=== PATIENT | female | born 2000 | race Caucasian/White ===

== ENCOUNTER → 2020-12-08 13:27 | Outpatient (CLI) | payer SELFPAY ==
[2020-12-08 14:03] LABS: Urine Pregnancy, HCG Qual. Negative (Negative)
== END ==
PROVIDERS: Visit Provider Internal Medicine Gastroenterology
DX: Z01.812 Encounter for preprocedural laboratory examination (principal); Z11.52 Encounter for screening for COVID-19; Z13.810 Encounter for screening for upper gastrointestinal disorder
CPT/HCPCS: 81025; U0003

== ENCOUNTER 2020-12-10 11:07 | Day surgery (SDC) | payer SELFPAY ==
[2020-12-10 11:31] VITALS: BP 124/83; PULSE 90; RESP 18; TEMP 36.6; O2SAT 100
--- NOTE | 2020-12-10 12:24 | P.PN_ITS ---
[facility] Anesthesia Checklist - Structural Data Admitted From: Home Planned Operative Procedure/s: egd Consent for Planned Operative Procedure(s) Verified: Yes - Airway Assessment C-Spine Mobility Assessed: Yes TMJ Mobility Assessed: Yes Dentition: Good Dentition - Neurological Assessment Level of Consciousness: Awake, Alert, Appropriate - Anesthesia Plan Anesthesia Risk discussed: Yes Anesthesia Plan: Verified ASA Class: II Anesthesia Type: MAC [facility] History I have reviewed the patient's past medical history: Yes Medical History: Denies:: Cancer, Diabetes Mellitus Type 1, Diabetes Mellitus Type 2, Internal Pacemaker, MRSA, Seizures *Have you ever received a pneumonia vaccine?: No *Have you received a flu vaccine this season?: No Anesthesia experience/problems:: none Laterality Cases: Bilateral: Tonsillectomy Other Surgeries: No: Pacemaker Amputation: No Fractures: No - *Social History Last grade of school completed: Some college Smoking Status: Never smoker Alcohol Intake: current Alcohol Intake Frequency:: a few times a month Substance Use Type: denies use *Occupational Status:: student Housing: house Household Members: family *Travel in the last 8 weeks: None Family Hx:: No significant family history
--- NOTE | 2020-12-10 12:35 | HMH.PROC ---
[facility] Procedure Note Procedure Note:: Upper Endoscopy Procedure Report: Esophagogastroduodenoscopy with cold biopsies Endoscopost: Lino Black II, MD Referring Physician: Vanessa Rivera MD ([id number] [place] [place] [phone] Date of Procedure: 12/10/2020 Equipment: Olympus GIF 190 standard upper endoscope Sedation: MAC sedation Indications: Ms. Yates is a 20-year-old female who states that in June 2020 she developed more significant nausea with rare vomiting. This started after beginning spironolactone. When she stopped this she did not improved. She has had some reduced appetite. She also reports some belching, bloating, indigestion and heartburn. She has occasional chest pain. She reports no dysphagia or weight loss. She did have a CAT scan of the abdomen and pelvis that was essentially normal except for some small nonobstructing bilateral kidney stones. She reports no melena. She does feel that omeprazole may have helped with her symptoms. She does report some loose bowel movements and postprandial bloating and early satiety. Procedure: Prior to the procedure, a history and physical exam was performed, and patient's medications and allergies were reviewed. The risks, benefits and alternatives of the sedation and procedure were discussed with the patient. All questions were answered and informed consent was obtained. The patient was brought to the procedure room. Patient identification and proposed procedure were verified by the physician and the nurse. The patient was placed in a left lateral decubitus position and the scope was passed under direct vision. Throughout the procedure, the patient's blood pressure, pulse, and oxygen saturations were monitored continuously. The upper GI endoscopy was accomplished without difficulty. The patient tolerated the procedure well. Findings: The scope was passed directly into the upper esophagus and advanced to the third portion of the duodenum. The post bulbar duodenum and duodenal bulb showed evidence of scalloping of the conniventes and mucosal evidence (with grooves and fissurations (mosaic pattern)) of celiac disease with mosaic pattern. Cold biopsies were taken from the post bulbar duodenum and duodenal bulb x6 and sent for histology (anand classification). The scope was withdrawn through a normal pylorus into the stomach. There was minimal reactive gastropathy of the antrum. The remainder of the antrum, body and fundus of the stomach were grossly normal. Upon retroflexion there was no hiatal hernia. 2 biopsies were taken in the antrum and along the lesser curvature for histology to rule out gastritis and/or H pylori. The scope was then withdrawn into the esophagus. There was a serrated Z-line mildly. There were tertiary contractions and mild dysmotility. There was no evidence of reflux esophagitis or Davey's. The remainder of the esophageal mucosa was normal. The remainder of the esophageal mucosa was normal. Impression: 1. Scalloped duodenal conniventes with grooves and fissurations (mosaic pattern) most consistent with celiac disease 2. Minimal linear reactive gastropathy of antrum 3. Minimal nonerosive GERD with mild esophageal dysmotility Plan: I will follow-up the biopsies. I will send celiac serologies today. I will discuss the findings with the patient and family and its relevance to her present symptoms.
[2020-12-10 12:40] VITALS: BP 111/65; PULSE 82; RESP 18; TEMP 36.5; O2SAT 98
[2020-12-10 12:50] VITALS: BP 126/77; PULSE 69; RESP 18; O2SAT 99
[2020-12-10 13:00] VITALS: BP 135/77; PULSE 66; RESP 18; O2SAT 100
--- NOTE | 2020-12-10 13:12 | SUR.PHASEII ---
LAB AT BEDSIDE FOR BLOOD DRAW
[2020-12-10 13:15] VITALS: BP 129/85; PULSE 69; RESP 18; O2SAT 100
[2020-12-10 13:33] LABS: Basophils # 0.1 K/mm3 (0-0.2); Basophils % 1.1 % (0.1-2.0); Eosinophils # 0.1 K/mm3 (0.0-0.4); Eosinophils % 1.3 % (0.1-12.0); Hematocrit 37.1 % (37.0-47.0); Hemoglobin 12.2 g/dL (12.2-16.2); Lymphocytes # 1.1 K/mm3 (0.7-4.5); Mean Corpuscular HGB Conc 32.8 g/dL (31.8-35.4); Mean Corpuscular Hemoglobin 26.3 pg (27.0-31.2); Mean Corpuscular Volume 80.3 fl (81-99); Mean Platelet Volume 8.2 fl (7.4-10.4); Monocytes # 0.4 K/mm3 (0.1-1.0); Monocytes % 5.9 % (1.7-9.3); Neutrophils # 4.8 K/mm3 (1.8-7.8); Neutrophils % 74.8 % (37.0-80.0); Platelet Count 268 K/mm3 (142-424); Red Blood Count 4.62 M/mm3 (4.20-5.40); Red Cell Distribution Width 15.8 % (11.5-17.5); White Blood Count 6.4 K/mm3 (4.5-13.0)
[2020-12-10 13:42] LABS: Chloride 106 mmol/L (98-107); Potassium 4.2 mmoL/L (3.5-5.1); Sodium 141 mmol/L (136-145)
[2020-12-10 13:44] LABS: Blood Urea Nitrogen 12 mg/dl (7-17); Creatinine Clearance Estimated 100 mL/min (50-200); Estimated Glomerular Filt Rate 80 ml/min (>60); GFR (African American) 97 ML/MIN (>60)
[2020-12-10 13:45] LABS: Alanine Aminotransferase 18 U/L (12-78); Albumin Level 4.4 g/dl (3.5-5.0); Albumin/Globulin Ratio 1.4 (1.1-1.8); Alkaline Phosphatase 75 U/L (38-126); Anion Gap 14.2 mEq/L (5-15); Aspartate Amino Transferase 38 U/L (14-36); Bilirubin,Total 0.4 mg/dl (0.2-1.3); Calcium 9.2 mg/dl (8.4-10.2); Carbon Dioxide 25 mmol/L (22.0-30.0); Globulin 3.2 g/dL (1.3-3.2); Glucose 107 mg/dl (74-100); Iron 66 ug/dL (37-170); Total Protein,Serum 7.6 g/dl (6.3-8.2)
[2020-12-10 13:55] LABS: Total Iron Binding Capacity 481 ug/dL (265-497)
[2020-12-10 14:23] LABS: Ferritin 5.62 ng/ml (6.24-137)
[2020-12-10 14:29] VITALS: O2SAT 97
[2020-12-10 14:37] LABS: Vitamin B12 715 pg/mL (239-931)
[2020-12-10 16:46] LABS: 25-OH Vitamin D, Total 69.9 ng/mL (30-100)
[2020-12-12 16:08] LABS: Endomysial IgA Antibody Positive (Negative)
[2020-12-13 17:51] LABS: Deamidated Gliadin Abs, IgA 83 units (0-19); Deamidated Gliadin Abs, IgG 118 units (0-19); Tissue Transglutaminase IgA Ab >100 U/mL (0-3); Tissue Transglutaminase IgG Ab 11 U/mL (0-5)
[2020-12-15 08:32] LABS: Reticulin IgA Antibody Negative titer (Neg:<1:2.5)
== END 2020-12-10 13:20 | disposition home or self-care (01) ==
LOC: OUTP 11:09
PROVIDERS: PCP Family Medicine Geriatric Medicine; Visit Provider Internal Medicine Gastroenterology
PROC: 0DJ08ZZ Inspection of Upper Intestinal Tract, Via Natural or Artificial Opening Endoscopic (ICD-10-PCS; CPT 43235; principal; 2020-12-10 12:00)
DX: K90.0 Celiac disease (principal); K31.9 Disease of stomach and duodenum, unspecified; K21.9 Gastro-esophageal reflux disease without esophagitis; K22.4 Dyskinesia of esophagus; Z79.899 Other long term (current) drug therapy
CPT/HCPCS: 43239; 36415; 80053; 82306; 82607; 82728; 83516; 83540; 83550; 85025; 86255; 86256